=== PATIENT | female | born 1965 | race Caucasian/White ===

== ENCOUNTER → 2023-08-22 06:24 | Day surgery (SDC) | payer OTHER, SELFPAY | LOC: GI 06:24 | PROVIDERS: ATTENDING PHYSICIAN Internal Medicine Gastroenterology; FAMILY PHYSICIAN Internal Medicine | DX: K22.70 Barrett's esophagus without dysplasia (principal); Q39.6 Congenital diverticulum of esophagus; K44.9 Diaphragmatic hernia without obstruction or gangrene; Z13.810 Encounter for screening for upper gastrointestinal disorder | CPT/HCPCS: 43239; 88305 ==

== ENCOUNTER → 2024-01-01 07:37 | Outpatient (REF) | payer OTHER, SELFPAY | LOC: WDC 07:37 | PROVIDERS: ATTENDING PHYSICIAN Obstetrics & Gynecology; FAMILY PHYSICIAN Internal Medicine | DX: Z12.31 Encounter for screening mammogram for malignant neoplasm of breast (principal) | CPT/HCPCS: 77063; 77067 ==

== ENCOUNTER 2024-12-10 17:02 | Inpatient (IN) | payer OTHER, SELFPAY ==
[2024-12-10 11:26] VITALS: BP 132/77
[2024-12-10 11:51] LABS: Urine Character Clear (Clear)
[2024-12-10 11:54] LABS: Hematocrit 36.1 % (37.0-47.0); Hemoglobin 11.9 g/dL (12.0-16.0); Mean Corp Hgb Conc. 33.0 g/dL (33.0-37.0); Mean Corpuscular Volume 89.6 fL (81.0-99.0); Nucleated Red Blood Cells % 0 %; Platelet Count 211 10^3/uL (130-400); Red Cell Dist. Width 12.9 % (11.5-14.5)
[2024-12-10 12:18] LABS: ALT (SGPT) 62 U/L (0-35); AST (SGOT) 66 U/L (14-36); Albumin 3.9 g/dl (3.5-5.0); Alkaline Phosphatase 89 U/L (38-126); Blood Urea Nitrogen 11 mg/dl (7-17); Calcium 8.7 mg/dl (8.4-10.2); Carbon Dioxide 26 mmol/L (22-30); Chloride 103 mmol/L (98-107); Glucose 137 mg/dl (70-99); Potassium 4.4 mmol/L (3.5-5.1); Sodium 138 mmol/L (135-145); Total Protein 6.9 g/dl (6.3-8.2); eGFR > 60.00
[2024-12-10 13:20] VITALS: BMI 32.0
[2024-12-10 13:30] VITALS: BP 128/65
[2024-12-10] MEDS: NSS 1000 IV ×2 (13:32→20:51)
--- NOTE | 2024-12-10 14:04 | ED.GENMED ---
History of Present Illness
General
Chief Complaint: Flank Pain
Source: patient
Exam Limitations: none
Time Seen by Provider: 12/10/24 12:57
Nursing documentation reviewed up to this point in time: agreed with
History of Present Illness
History of Present Illness:
Patient is a 58-year-old female presenting to the emergency department with right flank pain for the past week. Patient reports onset of hematuria and dysuria about 10 days ago. She suspected a UTI and was treating symptoms supportively at home
with hydration however saw her primary care provider yesterday and was started on Macrobid. Patient states she has had gradually worsening pain in her right flank and vomiting prompting her primary care prior to refer her to the emergency
department.
Patient denies any known fever however states she did have significant night sweats last night. She has had very little appetite. No chest pain or shortness of breath.
Since starting Macrobid�she states dysuria has improved however flank pain has persisted, if not worsened.
Patient has no past history of kidney stones
Past History
Past History
ED Past Medical History: GERD and Other (Migraines)
ED Past Surgical History: Other (Breast reduction)
Social History
Tobacco: Non-smoker
Alcohol: None
Drug: None
Review of Systems
Review of Systems
Allergies reviewed?: Yes
All Other Systems: ROS reviewed and negative except as documented in HPI and ROS
Phy Exam
Physical Exam
Physical Exam:
Vitals: Patient's vital signs are stable. Afebrile
General: Patient is in no distress.
Skin: Warm and dry, no rashes or lesions
Head: Normocephalic, atraumatic
Eyes: Sclera nonicteric.
Throat: Protecting airway
Neck: Normal ROM, no cervical spine tenderness, no meningismus
Cardiac: Regular rate and rhythm, no murmurs.
Pulm: Normal respiratory effort, no wheezes, rales, rhonchi heard on exam
Abdomen: Abdomen soft. Mild reproducible tenderness in right mid abdomen. No rebound tenderness or guarding. No focal tenderness McBurney's point. Right sided CVA tenderness.
Extremities: No evidence of cyanosis or edema
Neuro: AAOx3. Grossly intact.
Psychiatric: Normal affect.
Course
Orders/Labs/Results
Orders:
Orders
12/10/24 11:41
Complete Blood Count/With Diff Urgent
Comprehensive Metabolic Panel Urgent
Urine Culture Reflexed from UA [Urinalysis Reflex To Culture] Urgent
Date Specimen was Collected: 12/10/24
Time Specimen was Collected: 11:29
Urine Microscopic Reflex Cult Urgent
Urine Culture Urgent
ELIZABETH Source: U
Specimen Description:
Date Specimen was Collected: 12/10/24
Time Specimen was Collected: 11:29
12/10/24 13:17
CT Abd/pelvis W Iv Cont Urgent
Comment:
Reason For Exam: Right flank pain, +N/V recent UTI
0.9% Sodium Chloride 1000 ml [Nss] 1,000 ml IV BOLUS
12/10/24 15:42
CefTRIAXone [Rocephin] 1,000 mg IV NOW STA
12/10/24 15:48
Ondansetron Injectable [Zofran] 4 mg IV NOW STA
Abnormal Lab Results
12/10/24
11:41
WBC 15.9 H 10^3/uL
(4.8-10.8)
RBC 4.03 L 10^6/uL
(4.20-5.40)
Hgb 11.9 L g/dL
(12.0-16.0)
Hct 36.1 L %
(37.0-47.0)
Abs Immat Gran (auto) 0.1 H 10^3/uL
(0-0.05)
Absolute Neuts (auto) 12.9 H 10^3/uL
(1.4-6.5)
Absolute Monos (auto) 1.2 H 10^3/uL
(0.1-0.6)
Neutrophils % 81.4 H %
(42.2-75.2)
Lymphocytes % 10.3 L %
(20.5-51.1)
Glucose 137 H mg/dl
(70-99)
AST 66 H U/L
(14-36)
ALT 62 H U/L
(0-35)
Ur Occult Blood Reflex 4+ A
(Negative)
Leukocyte Esterase Rfl 2+ A
(Negative)
Urine RBC 3-6 A /HPF
(0-2)
Urine Bacteria (Reflex) Few A
(Negative)
Urine Albumin (Reflex) 3+ A
(Neg - Trace)
12/10/24 11:41
12/10/24 11:41
Vital Signs
Initial and Last Documented VS:
Initial Vital Signs
Temp Pulse Resp BP Pulse Ox
98.3 F 71 16 132/77 97
12/10/24 11:26 12/10/24 11:26 12/10/24 11:26 12/10/24 11:26 12/10/24 11:26
Last Documented Vital Signs
Temp Pulse Resp BP Pulse Ox
98.3 F 62 16 128/65 95
12/10/24 11:26 12/10/24 13:30 12/10/24 13:30 12/10/24 13:30 12/10/24 14:04
MDM/Problems Addressed
Differential Diagnosis Includes:
Not limited to: Cystitis, pyelonephritis, renal abscess, renal colic, cholecystitis, appendicitis, etc.
MDM/Problems Addressed:
58-year-old female with right flank pain and vomiting in setting of recently treated UTI. Patient reports hematuria and dysuria about 1 week ago, started Macrobid last night with worsening in symptoms today. No known fever although did experience
night sweats. No history of kidney stones. Vitals and exam as above. Patient nontoxic appearing on evaluation. Abdomen soft with mild reproducible tenderness in right mid abdomen and right sided CVA tenderness. No rash or ecchymosis.
Cardio/pulmonary assessment unremarkable.
Differential broad. Considering recent UTI�concern would be for complicated/ascending urinary tract infection or pyelonephritis. However�other considerations would be cholecystitis, appendicitis, etc. ED plan: Labs, urine, CT scan abdomen/pelvis
with IV contrast. Will give IV fluids. Patient declines any analgesia at this time.
Update: Labs reviewed. Leukocytosis of 15.9. Chemistry with mild transaminitis. Urine with few RBCs, 2+ leukocyte esterase�however patient is currently on Macrobid which may be leading to difficulty with interpretation of UA. CT scan with
findings consistent of right sided pyelonephritis. No evidence of abscess.
Ultimately�patient nontoxic-appearing. However�given vomiting concerned that she would be unable to tolerate p.o. antibiotics. She has failed Macrobid. Will admit patient to the hospital for IV antibiotics, further monitoring. Patient given dose
of IV Rocephin in the ED. Patient accepted to hospitalist service in stable condition.
Chronic conditions affecting care:
N/A
Acute Exacerbation and/or Progression of Chronic Illness:
N/A
*Radiology
Radiology exam reviewed: radiology read reviewed
*Pulse Oximetry
SaO2: 95
Oxygen Mode of Delivery: Room air
Patient hypoxic: no
*EKG
Interpreted by ED Provider?: NA
*Inventory Analyst Interpretation
Rate: Inventory Analyst- N/A
*Critical Care Note
Total Time (30-74mins, 75-104mins- exclusive of procedures): Not Applicable
Patient Management
Discussion with other providers: Hospitalist
Escalation/DeEscalation of care consider admission/obs:
Admit indicated
ED Attending Note
-
Portions of this chart may have been created with voice recognition software.� Occasional wrong word or��sound alike� substitutions may have occurred due to the inherent limitations of voice recognition software.
Discharge Plan
Departure
Prescriptions:
No Action
omeprazole magnesium [Prilosec OTC] 20 MG tablet,delayed release (DR/EC)
20 mg PO DAILY
Referrals:
Alia Junior MD [Family Provider, Internal Medicine]
Interventions
Interventions:
*Risk Screen - Suicide Last Done: 12/10/24 11:26
*General Assessment Last Done: 12/10/24 11:26
*Neglect/Abuse Screening Last Done: 12/10/24 11:26
*ED- Fall Risk Assessment Last Done: 12/10/24 11:26
*ED COVID-19 Vaccine History Last Done: 12/10/24 11:26
KW-Pfaoma-Dfyplzqkth Assessment Last Done: 12/10/24 13:20
ED-Female Genitourinary Assessment Last Done: 12/10/24 13:20
Discharge Date and Time
Print Language: KHMER
--- NOTE | 2024-12-10 16:27 | HPS.HSE ---
Family Physician
-
Family Physician: Alia Junior MD
Chief Complaint
-
Right flank pain
History of Present Illness
58-year-old female with past medical history for GERD, hypertension presenting to the emergency department with right flank pain for the past week. Patient reports onset of hematuria and dysuria started on . Hematuria resolved. she
suspected a UTI and was treating symptoms supportively at home with hydration however saw her primary care provider on Saturday and was started on Macrobid.patient stated chills and sweating. She complained of headache and dizziness. Patient was
nauseous. Denied fever, chest pain short of breath. Patient denied any cough, congestion. Patient denied any abdominal pain or diarrhea.
Patient received a dose of ceftriaxone in the ER for pyelonephritis. Admitting for further management
Medical History
Past Medical History
Past Medical History: Reports Other
Additional Past Medical History:
Bhatti's esophagus ascending colon polyps, migraine, esophageal ring, GERD, hiatal hernia, colon polyps, HPV
Past Surgical History: Reports Other
Additional Past Surgical History:
Breast reduction
Social History
Tobacco: Non-smoker
Alcohol: None
Drug: None
Family History
Family History: Not pertinent
Allergies / Home Medications
Allergies reflects when Allergies were last updated in [facility].
Home Medications with original date entered in [facility]
Allergy/Medication List:
Allergies
Allergy/AdvReac Type Severity Reaction Status Date / Time
celery Allergy Swelling Verified 01/08/15 22:45
kiwi Allergy Tongue Verified 01/08/15 22:45
Swelling
CARROTS Allergy Itching Uncoded 02/07/16 09:38
LATEX Allergy Itching Uncoded 02/07/16 09:38
Home Medications
acetaminophen 325 mg tablet (Tylenol) 650 mg PO Q6HPRN PRN MILD PAIN 12/10/24
omeprazole 40 mg capsule,delayed release 40 mg PO QPM 07/31/25
verapamil 180 mg tablet,extended release 180 mg PO DAILY 12/10/24
Review of Systems
-
Constitutional: Reports No Symptoms
EENT: Reports No Symptoms
Respiratory: Reports No Symptoms
Cardiac: Reports No Symptoms
Abdomen/GI: Reports No Symptoms
: Reports Dysuria and Flank Pain
Musculoskeletal: Reports No Symptoms
Skin: Reports No Symptoms
Neurological: Reports No Symptoms
Endocrine: Reports No Symptoms
Hematologic/Lymphatic: Reports No Symptoms
Psych: Reports No Symptoms
Physical Exam
Vital Signs
Vital Signs
Temp Pulse Resp BP Pulse Ox
98.3 F 62 16 128/65 95
12/10/24 11:26 12/10/24 13:30 12/10/24 13:30 12/10/24 13:30 12/10/24 14:04
Physical Exam
General: Well Developed, Well Nourished and No Apparent Distress
HEENT: NormoCephalic, Moist mucous membranes and Atraumatic
Respiratory: Clear
Cardiac: S1/S2 and Regular Rhythm; No Murmur or Rub
GI: Soft, Non Tender, Non Distended and Normal Bowel Sounds; No Organomegaly
Rectal: Deferred by Provider
Genito-urinary: Costovertebral angle tend
Musculoskeletal: No Clubbing, No Cyanosis and No Edema
Skin: No Rash
Neuro: AO x 3 and Nonfocal/grossly intact
Psych: Calm
Laboratory Results
-
12/10/24 11:41
12/10/24 11:41
Laboratory Results
Total Bilirubin 0.5 mg/dl (0.2-1.3) 12/10/24 11:41
AST 66 U/L (14-36) H 12/10/24 11:41
ALT 62 U/L (0-35) H 12/10/24 11:41
Alkaline Phosphatase 89 U/L (38-126) 12/10/24 11:41
Data Reviewed
-
CT Scan: Report Reviewed by me
Lab Data: Labs Reviewed by me
Impression/Plan
-
# Acute pyelonephritis
- Failed outpatient antibiotic
- WBCs 15.9
- CAT scan with acute pyelonephritis on the right side
- IV ceftriaxone continued
- Tylenol as needed for fever or pain
- CT abdomen pelvis with impression of right pyelonephritis
# Transaminitis likely from acute infection
- AST 66, ALT 62
- Trend LFT in a.m.
# GERD
- PPI continued
# Essential hypertension
- verapamil continued
# DVT prophylaxis
- Lovenox
# CODE STATUS
- Full code
[2024-12-10] MEDS: ZOFRAN 4 MG IV (16:30)
[2024-12-10] MEDS: ROCEPHIN 1000 MG IV (16:30)
--- NOTE | 2024-12-10 17:34 | W.PN.UPDATE ---
Update Note
Progress Note Update
This is an addendum to H&P written by DIRECTOR OF COMPLIANCE Annika Blackwell
I saw and examined the patient.
The DIRECTOR OF COMPLIANCE's note was reviewed and I agree with the note.
Comment:
Ms. Shavonne Singer is a 58 yo woman with hx GERD, essential HTN presents tot he ER with flank pain, hematuria and dysuria. She was startedo n Macrobid as outpatient.
Triage VS: T 98.3, P 71, RR 16, BP 132/77, SpO2 97%
On exam patient is awake, alert, in no distress. Lungs clear. Right sided CVA tenderness.
LABS: WBC 15.9, Hg 11.9, PLT 211, Na 138, K+ 4.4, Cl 103, CO2 26, Cr 0.8, Glucose 17, T. Bili 0.5, AST 66, ALT 62, Alk Phos 89
UA with 6-10 WBC, 2+ leuk esterase
CT A/P
IMPRESSION:
1. Findings suspicious for RIGHT pyelonephritis. See above.
2. Moderate-sized, fluid-filled hiatal hernia.
3. 5 mm ground glass nodule within the posterior right lower lobe. Patient referred to the pulmonary nodule advisory Board for follow-up.
4. Additional findings above.
KIDNEYS/URETERS: Left kidney is unremarkable. Within the right kidney, there is patchy/heterogeneous enhancement within the upper pole with subtle enhancement of the urothelium within the renal pelvis and the ureter with adjacent fat stranding.
Findings suspicious for acute pyelonephritis. No renal abscess identified. No stones appreciated.
Right Pyelonephritis
Leukocytosis
-evidenced by history and CT findings. Although UA with 6-10 WBC, patient has been on Macrobid which will reach bladder, not kidney
-continue IV Ceftriaxone
-IVF
-follow up cultures
-blood cultures if spikes fever on abx
GERD - SAFETY AIDE PPI
DVT PPx
FULL CODE
[2024-12-10 18:15] VITALS: BP 131/63
[2024-12-10 19:38] VITALS: BP 102/48
[2024-12-10 20:47] VITALS: BP 126/64; BMI 32.8
[2024-12-10] MEDS: LOVENOX 40 MG SC (20:50)
[2024-12-10] MEDS: PROTONIX 40 MG PO (20:50)
[2024-12-10 23:42] VITALS: BP 109/61
[2024-12-11] MEDS: NSS 1000 IV ×2 (05:52→14:42)
--- NOTE | 2024-12-11 07:31 | W.PN.HOSP.TC ---
Today's Communication/Plan
-
Doing better
Discussed outpatient urine culture with patient's PCP, results are still pending, based on those results will decide on final antibiotic regimen
Assessment / Plan
Assessment / Plan
Physical Exam
General: Well Developed, Well Nourished and No Apparent Distress
HEENT: Normocephalic, Moist mucous membranes and Atraumatic
Respiratory: Clear
Cardiac: S1/S2 and Regular Rhythm
GI: Soft, Non Tender, Non Distended and Normal Bowel Sounds
Musculoskeletal: No Cyanosis and No Edema
Skin: Warm. Dry.
Neuro: AO x 3 and Nonfocal/grossly intact
Psych: Calm
Assessment/Plan
58 yo female with hx GERD, essential HTN presents to the ER with right flank pain, hematuria and dysuria. Urine cultures were drawn at her outpatient provider's office on 12/08/24, and she was started on Macrobid but her symptoms worsened and she
was sent to the ER.
Triage VS: T 98.3, P 71, RR 16, BP 132/77, SpO2 97%
On exam patient is awake, alert, in no distress. Lungs clear. Right sided CVA tenderness.
LABS: WBC 15.9, Hg 11.9, PLT 211, Na 138, K+ 4.4, Cl 103, CO2 26, Cr 0.8, Glucose 17, T. Bili 0.5, AST 66, ALT 62, Alk Phos 89
UA with 6-10 WBC, 2+ leuk esterase
CT A/P
IMPRESSION:
1. Findings suspicious for RIGHT pyelonephritis. See above.
2. Moderate-sized, fluid-filled hiatal hernia.
3. 5 mm ground glass nodule within the posterior right lower lobe. Patient referred to the pulmonary nodule advisory Board for follow-up.
4. Additional findings above.
KIDNEYS/URETERS: Left kidney is unremarkable. Within the right kidney, there is patchy/heterogeneous enhancement within the upper pole with subtle enhancement of the urothelium within the renal pelvis and the ureter with adjacent fat stranding.
Findings suspicious for acute pyelonephritis. No renal abscess identified. No stones appreciated.
Right Pyelonephritis
Leukocytosis
-evidenced by history and CT findings. Although UA with 6-10 WBC, patient has been on Macrobid which will reach bladder, not kidney
-continue IV Ceftriaxone
-IVF
-follow up cultures
-blood cultures if spikes fever on abx
-I communicated with patient's primary physician Dr. Alia Junior and will coordinate patient's care with her including discussion of outpatient urine culture results
GERD - CANOPY INSPECTOR PPI
DVT Prophylaxis: Lovenox
Code Status: FULL CODE
Anticipated Discharge: 24 - 48 hours
Subjective/Interval History
-
Date of Service: December 11, 2024
Patient was seen and examined. She reported that she was feeling better.
Objective Data
-
Labs:
Laboratory Results
12/11/24
07:15
WBC Pending
Hgb Pending
Hct Pending
Plt Count Pending
Sodium Pending
Potassium Pending
Chloride Pending
Carbon Dioxide Pending
BUN Pending
Creatinine Pending
Glucose Pending
Calcium Pending
Total Bilirubin Pending
AST Pending
ALT Pending
Alkaline Phosphatase Pending
Vital Signs:
Vital Signs
Temp Pulse Resp BP Pulse Ox
98.5 F 61 17 109/61 98
12/10/24 23:42 12/10/24 23:42 12/10/24 23:42 12/10/24 23:42 12/10/24 23:42
I&O
12/10/24 12/11/24 12/12/24
06:59 06:59 06:59
Intake Total 240 / 240
Output Total 1050 / 1050
Balance -810 / -810
[2024-12-11 07:40] VITALS: BP 128/72
[2024-12-11 08:12] LABS: Hematocrit 30.1 % (37.0-47.0); Hemoglobin 9.8 g/dL (12.0-16.0); Mean Corp Hgb Conc. 32.6 g/dL (33.0-37.0); Mean Corpuscular Volume 89.9 fL (81.0-99.0); Platelet Count 208 10^3/uL (130-400); Red Cell Dist. Width 13.3 % (11.5-14.5)
[2024-12-11] MEDS: CALAN EXTENDED RELEASE 180 MG PO (08:39)
[2024-12-11 08:47] LABS: ALT (SGPT) 111 U/L (0-35); AST (SGOT) 127 U/L (14-36); Albumin 2.8 g/dl (3.5-5.0); Alkaline Phosphatase 72 U/L (38-126); Blood Urea Nitrogen 10 mg/dl (7-17); Calcium 7.7 mg/dl (8.4-10.2); Carbon Dioxide 26 mmol/L (22-30); Chloride 108 mmol/L (98-107); Estimated Creatinine Clearance 98 ml/min; Glucose 103 mg/dl (70-99); Potassium 3.9 mmol/L (3.5-5.1); Sodium 138 mmol/L (135-145); Total Protein 5.3 g/dl (6.3-8.2); eGFR > 60.00
[2024-12-11 15:51] VITALS: BP 112/61
--- NOTE | 2024-12-11 16:01 | PTCARENOTE ---
Pt AAO x3, MCCLAIN well, ambulatory in room/to BR; annie well, no c/o weakness/dizziness. VSS. On room air-pulse ox 98%. Abd soft, rounded, annie PO well. Voids clear yellow urine on specipan- no hematuria noted. IV NSS @ 100 ml/hr infusing via Lt AC
site without sx of infiltration. Resting comfortably at present, no c/o. Will continue to monitor.
[2024-12-11] MEDS: FLUSH (NSS) 1 FLUSH IV (16:42)
[2024-12-11] MEDS: STERILE WATER FOR INJECTION 10 ML IV (16:42)
[2024-12-11] MEDS: ROCEPHIN 1000 MG IV (16:42)
[2024-12-11] MEDS: LOVENOX 40 MG SC (17:44)
[2024-12-11] MEDS: PROTONIX 40 MG PO (17:44)
[2024-12-11 23:45] VITALS: BP 101/59
[2024-12-12] MEDS: NSS 1000 IV (00:36)
[2024-12-12 07:15] VITALS: BP 108/60
[2024-12-12 08:21] LABS: ALT (SGPT) 214 U/L (0-35); AST (SGOT) 138 U/L (14-36); Albumin 2.7 g/dl (3.5-5.0); Alkaline Phosphatase 64 U/L (38-126); Blood Urea Nitrogen 9 mg/dl (7-17); Calcium 7.8 mg/dl (8.4-10.2); Carbon Dioxide 27 mmol/L (22-30); Chloride 110 mmol/L (98-107); Estimated Creatinine Clearance 98 ml/min; Glucose 96 mg/dl (70-99); Potassium 4.2 mmol/L (3.5-5.1); Sodium 140 mmol/L (135-145); Total Protein 5.2 g/dl (6.3-8.2); eGFR > 60.00
[2024-12-12] MEDS: CALAN EXTENDED RELEASE 180 MG PO (08:21)
--- NOTE | 2024-12-12 10:34 | W.PN.HOSP.TC ---
Today's Communication/Plan
-
NPO after midnight
Please see below
Assessment / Plan
Assessment / Plan
Physical Exam
General: Well Developed, Well Nourished and No Apparent Distress
HEENT: Normocephalic, Moist mucous membranes and Atraumatic
Respiratory: Clear
Cardiac: S1/S2 and Regular Rhythm
GI: Soft, Non Tender, Non Distended and Normal Bowel Sounds
Musculoskeletal: No Cyanosis and No Edema
Skin: Warm. Dry.
Neuro: AO x 3 and Nonfocal/grossly intact
Psych: Calm
Assessment/Plan
58 yo female with hx GERD, essential HTN presents to the ER with right flank pain, hematuria and dysuria. Urine cultures were drawn at her outpatient provider's office on 12/08/24, and she was started on Macrobid but her symptoms worsened and she
was sent to the ER.
Triage VS: T 98.3, P 71, RR 16, BP 132/77, SpO2 97%
On exam patient is awake, alert, in no distress. Lungs clear. Right sided CVA tenderness.
LABS: WBC 15.9, Hg 11.9, PLT 211, Na 138, K+ 4.4, Cl 103, CO2 26, Cr 0.8, Glucose 17, T. Bili 0.5, AST 66, ALT 62, Alk Phos 89
UA with 6-10 WBC, 2+ leuk esterase
CT A/P
IMPRESSION:
1. Findings suspicious for RIGHT pyelonephritis. See above.
2. Moderate-sized, fluid-filled hiatal hernia.
3. 5 mm ground glass nodule within the posterior right lower lobe. Patient referred to the pulmonary nodule advisory Board for follow-up.
4. Additional findings above.
KIDNEYS/URETERS: Left kidney is unremarkable. Within the right kidney, there is patchy/heterogeneous enhancement within the upper pole with subtle enhancement of the urothelium within the renal pelvis and the ureter with adjacent fat stranding.
Findings suspicious for acute pyelonephritis. No renal abscess identified. No stones appreciated.
Right Pyelonephritis
Leukocytosis
-evidenced by history and CT findings. Although UA with 6-10 WBC, patient has been on Macrobid which will reach bladder, not kidney
-IV Ceftriaxone --> changed to Cefdinir on 12/12/24
-IVF
-follow up cultures
-blood cultures if spikes fever on abx
-I communicated with patient's primary physician Dr. Alia Junior and will coordinate patient's care with her including discussion of outpatient urine culture results
-I communicated with patient's primary physician Dr. Alia Junior, and the urine culture showed E. coli, vera susceptible --> there were less than 100,000 colony forming units, but I agreed with Dr. Junior that this is a real
infection
Transaminitis suspected from Ceftriaxone and ?NAFLD?
Hypoalbuminemia -- suspected from mild liver injury with elevated AST and ALT
-AST and ALT were elevated on admission
-AST and ALT have been steadily increasing since patient came to the hospital
-Suspected Rocephin playing a role --> changed to Cefdinir on 12/12/24 especially given patient's clinical improvement
-RUQ ultrasound tomorrow
-NPO after midnight for the ultrasound
Liver Lesion
Lung Nodule
-Patient will follow-up with her PCP about this outpatient
GERD - PROTECTION CONSULTANT PPI
DVT Prophylaxis: Lovenox
Code Status: FULL CODE
Anticipated Discharge: Within 24 hours
Subjective/Interval History
-
Date of Service: December 12, 2024
Patient was seen and examined. She reported she is doing okay, still with some pain on her abdominal/right flank area.
Objective Data
-
Labs:
Laboratory Results
12/12/24 12/12/24
06:44 10:27
WBC Pending
Hgb Pending
Hct Pending
Plt Count Pending
PT Pending
INR Pending
APTT Pending
Sodium 140
Potassium 4.2
Chloride 110 H
Carbon Dioxide 27
BUN 9
Creatinine 0.7
Glucose 96
Calcium 7.8 L
Total Bilirubin 0.4
AST 138 H
ALT 214 H
Alkaline Phosphatase 64
Vital Signs:
Vital Signs
Temp Pulse Resp BP Pulse Ox
98.6 F 70 20 108/60 95
12/12/24 07:15 12/12/24 08:21 12/12/24 07:15 12/12/24 08:21 12/12/24 10:20
I&O
12/11/24 12/12/24 12/13/24
06:59 06:59 06:59
Intake Total 240 / 240 2400 / 2400
Output Total 1050 / 1050 2250 / 2250
Balance -810 / -810 150 / 150
--- NOTE | 2024-12-12 11:27 | CM ---
CM reviewed chart, patient seen bedside, initial assessment completed. Patient is a 58-year-old female presenting to the emergency department with right flank pain for the past week. Patient resides with her in a split level home, one step
to enter. Patient is independent with ADLs/IADLs, no DME. Patient denies VN/SNF hx. Patient confirms PCP Alia Junior, Pharmacy [facility], confirms prescription coverage. Patient denies insecurities at home. CM will continue to follow for
all discharge planning needs.
Plan; home no needs anticipated
[2024-12-12 11:30] LABS: INR 1.03; PT 13.8 Sec (11.4-14.6)
[2024-12-12 11:31] LABS: APTT 32.1 Sec (23.4-35.0)
--- NOTE | 2024-12-12 12:03 | PTCARENOTE ---
Dr. Suarez aware that ultrasound of abdomen will be tomorrow morning due to pt needing to be NPO for 8 hours.
[2024-12-12 12:05] LABS: Urine Character Clear (Clear)
[2024-12-12 12:19] LABS: Urine Red Blood Cell 0-2 /HPF (0-2); Urine Squamous Cell 0-2 /LPF (Few); Urine White Cell 0-2 /HPF (0-5)
[2024-12-12 12:23] LABS: Hematocrit 29.1 % (37.0-47.0); Hemoglobin 9.4 g/dL (12.0-16.0); Mean Corp Hgb Conc. 32.3 g/dL (33.0-37.0); Mean Corpuscular Volume 92.1 fL (81.0-99.0); Nucleated Red Blood Cells % 0 %; Platelet Count 216 10^3/uL (130-400); Red Cell Dist. Width 13.9 % (11.5-14.5)
--- NOTE | 2024-12-12 13:10 | PTCARENOTE ---
Addendum entered by Nelly Wlison 12/12/24 16:51:
Dr. Suarez ordered a dose of IV Benadryl 25mg, administered at 1339 with effect. No further tingling or swelling noted. Pt states that she feels like her face feels back to baseline.
Original Note:
Pt alerted RN at this time that her bilateral lower face into her neck felt swollen. No difficulty with swallowing but scratchy voice. No sore throat. No noted rash or redness. Pt reports that it feels kind of tingly. No facial weakness or slurring
noted. No facial droop. She hasn't had anything new to eat/meds. Made Dr. Suarez aware, will continue to monitor closely.
[2024-12-12] MEDS: BENADRYL 25 MG IV (13:38)
[2024-12-12] MEDS: FLUSH (NSS) 2 FLUSH IV (13:39)
[2024-12-12] MEDS: OMNICEF 300 MG PO ×2 (14:42→19:34)
[2024-12-12 15:25] VITALS: BP 106/49
[2024-12-12] MEDS: LOVENOX 40 MG SC (18:20)
[2024-12-12] MEDS: PROTONIX 40 MG PO (18:20)
[2024-12-12 23:14] VITALS: BP 112/63
[2024-12-13 09:30] VITALS: BP 140/68
[2024-12-13] MEDS: CALAN EXTENDED RELEASE 180 MG PO (09:43)
[2024-12-13] MEDS: OMNICEF 300 MG PO (09:43)
[2024-12-13 11:02] LABS: Hematocrit 31.2 % (37.0-47.0); Hemoglobin 10.1 g/dL (12.0-16.0); Mean Corp Hgb Conc. 32.4 g/dL (33.0-37.0); Mean Corpuscular Volume 89.7 fL (81.0-99.0); Nucleated Red Blood Cells % 0 %; Platelet Count 269 10^3/uL (130-400); Red Cell Dist. Width 13.8 % (11.5-14.5)
[2024-12-13 11:24] LABS: ALT (SGPT) 170 U/L (0-35); AST (SGOT) 53 U/L (14-36); Albumin 3.2 g/dl (3.5-5.0); Alkaline Phosphatase 77 U/L (38-126); Blood Urea Nitrogen 8 mg/dl (7-17); Calcium 8.5 mg/dl (8.4-10.2); Carbon Dioxide 28 mmol/L (22-30); Chloride 108 mmol/L (98-107); Estimated Creatinine Clearance 98 ml/min; Glucose 98 mg/dl (70-99); Potassium 4.0 mmol/L (3.5-5.1); Sodium 141 mmol/L (135-145); Total Protein 5.8 g/dl (6.3-8.2); eGFR > 60.00
--- NOTE | 2024-12-13 12:01 | W.PN.HOSP.TC ---
Today's Communication/Plan
-
Discharge today
Assessment / Plan
Assessment / Plan
Physical Exam
General: Well Developed, Well Nourished and No Apparent Distress
HEENT: Normocephalic, Moist mucous membranes and Atraumatic
Respiratory: Clear
Cardiac: S1/S2 and Regular Rhythm
GI: Soft, Non Tender, Non Distended and Normal Bowel Sounds
Musculoskeletal: No Cyanosis and No Edema
Skin: Warm. Dry.
Neuro: AO x 3 and Nonfocal/grossly intact
Psych: Calm
Assessment/Plan
58 yo female with hx GERD, essential HTN presents to the ER with right flank pain, hematuria and dysuria. Urine cultures were drawn at her outpatient provider's office on 12/08/24, and she was started on Macrobid but her symptoms worsened and she
was sent to the ER.
Triage VS: T 98.3, P 71, RR 16, BP 132/77, SpO2 97%
On exam patient is awake, alert, in no distress. Lungs clear. Right sided CVA tenderness.
LABS: WBC 15.9, Hg 11.9, PLT 211, Na 138, K+ 4.4, Cl 103, CO2 26, Cr 0.8, Glucose 17, T. Bili 0.5, AST 66, ALT 62, Alk Phos 89
UA with 6-10 WBC, 2+ leuk esterase
CT A/P
IMPRESSION:
1. Findings suspicious for RIGHT pyelonephritis. See above.
2. Moderate-sized, fluid-filled hiatal hernia.
3. 5 mm ground glass nodule within the posterior right lower lobe. Patient referred to the pulmonary nodule advisory Board for follow-up.
4. Additional findings above.
KIDNEYS/URETERS: Left kidney is unremarkable. Within the right kidney, there is patchy/heterogeneous enhancement within the upper pole with subtle enhancement of the urothelium within the renal pelvis and the ureter with adjacent fat stranding.
Findings suspicious for acute pyelonephritis. No renal abscess identified. No stones appreciated.
Right Pyelonephritis
Leukocytosis
-evidenced by history and CT findings. Although UA with 6-10 WBC, patient has been on Macrobid which will reach bladder, not kidney
-IV Ceftriaxone --> changed to Cefdinir on 12/12/24 --> continue Cefdinir 300 mg BID through 12/23/24 (first day of antibiotics in the hospital was 12/10/24)
-IVF was given
-I communicated with patient's primary physician Dr. Alia Junior
-I communicated with patient's primary physician Dr. Alia Junior, and she said that the urine culture showed E. coli, vera susceptible --> there were less than 100,000 colony forming units, but I agreed with Dr. Junior that this is
a real infection
Transaminitis suspected from Ceftriaxone with possible contribution from Non-Alcoholic Fatty Liver Disease
Hypoalbuminemia -- IMPROVING -- suspected from mild liver injury with elevated AST and ALT
-AST and ALT were elevated on admission
-AST and ALT have been steadily increasing since patient came to the hospital
-Suspected Rocephin playing a role --> changed to Cefdinir on 12/12/24 especially given patient's clinical improvement
-RUQ ultrasound unremarkable
Liver Lesion
Lung Nodule
-Patient will follow-up with her PCP about this outpatient
GERD - TRAINING AND QUALITY MANAGER PPI
DVT Prophylaxis: Lovenox
Code Status: FULL CODE
More than 30 minutes spent in discharge including
Final examination of the patient
Summarizing hospital stay
Instructions for continuing care to all relevant caregivers
Preparation of discharge records, prescriptions, and referral forms
Total time spent (in minutes): 38
Anticipated Discharge: Today
Subjective/Interval History
-
Date of Service: December 13, 2024
Patient was seen and examined. She reported feeling good, pain is now significantly better than when she came in, she denied any dysuria or hematuria and she is looking forward to going home today.
Objective Data
-
Labs:
Laboratory Results
12/13/24
10:21
WBC 5.5
Hgb 10.1 L
Hct 31.2 L
Plt Count 269 D
Sodium 141
Potassium 4.0
Chloride 108 H
Carbon Dioxide 28
BUN 8
Creatinine 0.7
Glucose 98
Calcium 8.5
Total Bilirubin 0.4
AST 53 H
ALT 170 H
Alkaline Phosphatase 77
Vital Signs:
Vital Signs
Temp Pulse Resp BP Pulse Ox
98.3 F 61 17 140/68 98
12/13/24 09:30 12/13/24 09:30 12/13/24 09:30 12/13/24 09:30 12/13/24 09:30
I&O
12/12/24 12/13/24 12/14/24
06:59 06:59 06:59
Intake Total 2400 / 2400 2420 / 2420
Output Total 2250 / 2250 3600 / 3600
Balance 150 / 150 -1180 / -1180
--- NOTE | 2024-12-13 15:15 | W.DCSUMMARY ---
Discharge Summary
Discharge Data
Date of Admission: 12/10/24
Date of Discharge: 12/13/24
Total time spent discharging patient (in min): 38
-
Pending Results: No
Hospital Course
59 y/o female GERD and essential hypertension presented to the [facility] ER with flank pain, hematuria and dysuria. She had been started on Macrobid as outpatient but her symptoms persisted/became worse and she was advised by her primary care physician
to go the hospital emergency room. Patient was found to have pyelonephritis on CT imaging. Patient was started on intravenous antibiotics. Hospital urine culture was unrevealing/probably contaminated. I communicated with patient's primary care
physician, Dr. Junior, several times during patient's hospitalization, and she said that patient's urine culture (collected a few days before patient presented to the hospital) showed E. coli, vera susceptible --> there were less than 100,000 colony
forming units, but I agreed with Dr. Junior that this is a real urinary tract infection. Patient had elevation in AST and ALT, thought to be from Ceftriaxone, which was able to be switched to oral antibiotics, with subsequent improvement in the AST
and ALT. Patient's right upper quadrant ultrasound was unremarkable. Patient's symptoms improved dramatically and her leukocytosis resolved. Patient's case and management plan on discharge was communicated with Dr. Junior on the day of discharge, and
Dr. Junior was in agreement and would follow-up with patient including repeat complete blood count with differential in a few days.
Discharge Plan
-
Patient Disposition: Home (Routine Discharge)
Discharge Diagnosis/Procedures: Right Pyelonephritis
Leukocytosis
Transaminitis/mild liver injury suspected from Ceftriaxone with possible contribution from Non-Alcoholic Fatty Liver Disease
Hypoalbuminemia -- IMPROVING -- suspected from mild liver injury with elevated AST and ALT
Liver Lesion
Lung Nodule
GERD
Normocytic Anemia

CT Abdomen Pelvis (as per radiologist's report):
'TECHNIQUE: CT examination of the abdomen and pelvis was performed following the administration of nonionic intravenous contrast. Oral contrast was not administered. Coronal and sagittal reformatted images were obtained. Automatic exposure control
radiation dose reduction technology was utilized.
COMPARISON: None
FINDINGS:
LOWER CHEST: Moderate sized, fluid-filled hiatal hernia. 5 mm groundglass nodules in the posterior right lower lobe (image 2, series 201).
LIVER: Subcentimeter hypodensity within the posterior right lobe too small to characterize.
GALLBLADDER: Within normal limits.
BILE DUCTS: Within normal limits.
PANCREAS: Within normal limits.
SPLEEN: Within normal limits.
ADRENALS: Within normal limits.
KIDNEYS/URETERS: Left kidney is unremarkable. Within the right kidney, there is patchy/heterogeneous enhancement within the upper pole with subtle enhancement of the urothelium within the renal pelvis and the ureter with adjacent fat stranding.
Findings suspicious for acute pyelonephritis. No renal abscess identified. No stones appreciated.
BOWEL: No obstruction or wall thickening. Unremarkable appendix. Scattered diverticulosis.
PERITONEUM: No ascites or free air.
REPRODUCTIVE: Within normal limits.
BLADDER: Mild diffuse bladder wall thickening versus underdistention. No stones.
VESSELS: Non-aneurysmal abdominal aorta.
RETROPERITONEUM: No retroperitoneal or pelvic lymphadenopathy.
ABDOMINAL WALL: Within normal limits.
BONES: No suspicious lesions. Bilateral facet arthropathy at L4-5 and L5-S1.
IMPRESSION:
1. Findings suspicious for RIGHT pyelonephritis. See above.
2. Moderate-sized, fluid-filled hiatal hernia.
3. 5 mm ground glass nodule within the posterior right lower lobe. Patient referred to the pulmonary nodule advisory Board for follow-up.
4. Additional findings above.
The [facility] Pulmonary Nodule Advisory Board hotline was notified with the findings on 12/10/2024 3:33 PM.'

Abdominal Ultrasound Results (as per radiologist's report):
'FINDINGS:
LIVER: The liver measures up to 16.0 cm in length. The hepatic echotexture is homogeneous without focal lesion.
BILE DUCTS: No intrahepatic or extrahepatic biliary dilatation. The common bile duct measures 4 mm in diameter.
GALLBLADDER: No shadowing gallbladder calculus, abnormal gallbladder wall thickening, gallbladder distention, or pericholecystic fluid. The anterior gallbladder wall measures 2-3 mm in thickness. The sonographic Quiles's sign was reportedly
negative.
RETROPERITONEUM: The imaged portions of the pancreatic head, neck, and body appear normal. The imaged portions of the intra-abdominal inferior vena cava and abdominal aorta appear normal.
RIGHT KIDNEY: The right kidney measures 11.6 x 4.7 x 4.5 cm. Small right external pelvis, but no evidence for hydronephrosis
Trace right pleural fluid.
IMPRESSION:
No sonographic evidence for cholelithiasis or bile duct dilatation.'
Condition: Good
Diet: Regular
Activity: As tolerated
Blood Work: CBC (with differential), CMP and Magnesium within 2 to 3 days with your primary care provider's office
Activity Restrictions/Additional Instructions:
If you have any new symptoms, chills, fatigue, fever, abdominal pain, chest pain, dizziness, any worsening of your abdominal/right flank pain, dysuria or any other new symptoms, please return to the emergency room right away.
Instructions: Cefdinir
Referrals:
Alia Junior MD [Family Provider, Internal Medicine] - in two to three days
Referral Note: Hospitalization Follow-Up
Additional Discharge Medication Instructions: Cefdinir is a new antibiotic medication which you will need to take through 12/23/24 to complete 2 weeks total course of antibiotics (hospital antibiotics+outpatient antibiotics)
Prescriptions:
New
cefdinir 300 mg Capsule
300 mg PO Q12 11 Days Qty: 22 0RF
Continued
verapamil 180 mg Tablet Extended Release
180 mg PO DAILY
omeprazole 40 mg Capsule,Delayed Release(Dr/Ec)
40 mg PO QPM
Discontinued
acetaminophen [Tylenol] 325 mg Tablet
650 mg PO Q6HPRN PRN (Reason: MILD PAIN)
Discharge Orders:
Discharge Patient (As Directed); Ordered 12/13/24
Ordered By: Anthony Suarez
Discharge Date and Time
Discharge Date/Time: 12/13/24 17:24
Print Language: MONGOLIAN
== END 2024-12-13 17:24 | disposition home or self-care (01) | DRG 690 ==
LOC: 4 EAST ACU 17:02
PROVIDERS: Emergency Medicine; Registered Nurse; ADMITTING PHYSICIAN Student in an Organized Health Care Education/Training Program; ATTENDING PHYSICIAN Hospitalist; EMERGENCY PHYSICIAN Emergency Medicine; FAMILY PHYSICIAN Hospitalist
DX: N10 Acute pyelonephritis (principal); K75.81 Nonalcoholic steatohepatitis (NASH); E88.09 Other disorders of plasma-protein metabolism, not elsewhere classified; K21.9 Gastro-esophageal reflux disease without esophagitis; D64.9 Anemia, unspecified; R91.1 Solitary pulmonary nodule; K44.9 Diaphragmatic hernia without obstruction or gangrene; M47.816 Spondylosis without myelopathy or radiculopathy, lumbar region; I10 Essential (primary) hypertension; Z91.040 Latex allergy status; G43.909 Migraine, unspecified, not intractable, without status migrainosus
CPT/HCPCS: 74177; 76705; 80053; 81003; 81015; 82248; 85025; 85027; 85610; 85730; 87086; 96361; 96374; 96375; 99284; Q9967